=== PATIENT | female | born 1990 | race Caucasian/White ===

== ENCOUNTER 2016-10-31 05:20 | Day surgery (SDC) | payer OTHER ==
[~2016-10-31] VITALS: Ht 160 cm; Wt 102.0 kg
[~2016-10-31 05:20] MED LIST: BUTALB-APAP-CA1 EACH PO; CHILD ASPIRIN81 M1 PO; CIPRO500 MG PO; COLACE100 MG PO; ENDOCET 5-3251 EACH PO; FERROUS SULFAT325 MG PO; FIORICET 50-301 EACH PO; HYDROCODON-ACE1 EAC7 PO; IBUPROFEN800 MG PO; IMITREX50 MG PO; IRON325 MG PO; MACROBID100 MG PO; MACRODANTIN100 MG PO; MIRENA52 MG IY; MOTRIN600 MG PO; NORCO 5/3251 TABLET PO; PRENATAL TABLE1 EACH PO; REGLAN10 MG PO; TESSALON PERLE100 MG PO; TROKENDI XR25 MG PO; TYLENOL EXTRA500 MG PO; ZOFRAN ODT8 MG PO; ZOFRAN4 MG PO
[2016-10-31 05:55] VITALS: BP 119/74
[2016-10-31 07:21] LABS: METH RESISTANT S AUREUS PCR NEGATIVE (NEGATIVE)
[2016-10-31 07:25] LABS: PROBE CHECK PASS; SPECIMEN PROCESSING CONTROL PASS
[2016-10-31] MEDS ORDERED: NORCO 5/3251 TABLET PO (08:51)
[2016-10-31 09:49] VITALS: BP 120/68
[2016-10-31 10:59] VITALS: BP 125/73
== END 2016-10-31 11:00 | disposition home or self-care (01) ==
LOC: SDC 05:20
PROVIDERS: Obstetrics & Gynecology
DX: Z30.2 Encounter for sterilization (principal); Z30.432 Encounter for removal of intrauterine contraceptive device; K66.0 Peritoneal adhesions (postprocedural) (postinfection); Z87.891 Personal history of nicotine dependence
CPT/HCPCS: 87641; J0131; J0330; J1170; J1885; J2250; J2405; J2765; J3010; S0020